=== PATIENT | female | born 1990 | race African-American/Black ===

== ENCOUNTER 2022-09-15 13:15 | Emergency (ER) | payer OTHER ==
[~2022-09-15] VITALS: Ht 170.2 cm; Wt 72.6 kg
[2022-09-15] MEDS ORDERED: OLANZAPINE 5 MG TABLET PO ONE (13:30)
[2022-09-15] MEDS ORDERED: OLANZAPINE 5 MG TABLET ONE (13:37)
--- NOTE | 2022-09-15 14:20 | NUR ---
32 years old female biba for mental status changes, non compliant with treatment refused po med after 3 attempts, Dr Fraire notified.
[2022-09-15] MEDS ORDERED: LORA0.5T48 PO (14:49)
--- NOTE | 2022-09-15 15:13 | NUR ---
patient seen evaluated by crisis team condition stable d/c home with friends after care reviewed understood.
[2022-09-15 15:14] VITALS: BP 110/70
== END 2022-09-15 15:29 | disposition home or self-care (01) ==
LOC: ER 13:15
DX: O99.345 Other mental disorders complicating the puerperium (principal); F53.0 Postpartum depression
CPT/HCPCS: A4663